=== PATIENT | female | born 1975 | race Caucasian/White ===

== ENCOUNTER 2025-02-17 09:58 | Day surgery (SDC) | payer BC, SELFPAY ==
--- NOTE | 2025-02-15 07:15 | P.HP_ITS ---
History of Present Illness *Admission Date: 02/17/25 *History of present illness: Mrs. Garcia is a 49-year-old female who is here for initial screening colonoscopy. The examination is deemed medically necessary for screening colonoscopy. The patient has been seen, interviewed and examined prior to the procedure by both myself and the anesthesia provider. [facility] Disclaimer: The information contained in this section may have been updated after the patient was seen, as this information can be updated by other users. Medical History (Updated 02/17/25 @ 10:14 by Asa Davis) No significant past medical history Surgical History (Updated 02/17/25 @ 10:14 by Asa Davis) History of laparoscopic appendectomy Hx of tonsillectomy Family History (Updated 02/17/25 @ 10:15 by Asa Davis) Father Heart disease Social History (Updated 02/17/25 @ 10:15 [facility] Smoking Status: Never smoker alcohol intake: never current occupational status: employed Travel in the last 8 weeks?: None Have you lived/traveled outside [place] in past 30 days?: No Contact w/someone who lives/traveled outside [place] past 30 days?: No Exposure to someone with infectious disease in past 14 days?: No Do you have a fever (greater than 100.4 F or 38 C)?: No Have you tested positive for COVID-19?: No Exposed to someone with COVID-19 in past 14 days?: No Do you have a sore throat?: No Do you have a cough?: No Do you have any weakness?: No Do you have any diarrhea?: No Are you experiencing any unusual bleeding?: No Do you have any muscle aches/pain?: No Do you have any abdominal pain?: No Are you experiencing loss of taste or smell?: No Review of Systems Review of Systems Review of systems (narrative): Negative *Cardiovascular Comments: Negative *Gastrointestinal Comments: Negative *Genitourinary Comments: Negative *Musculoskeletal Comments: Negative *Neurologic Comments: Negative Meds Home Medications and Allergies Home Medications ?Medication ?Instructions ?Recorded ?Confirmed ?Type sodium,potassium,mag sulfates 17.5 See Rx Instructions PO .COMPLEX 01/18/25 Rx gram-3.13 gram-1.6 gram oral soln #354 mL (Suprep Bowel Prep Kit) New Prescriptions to Start Prescriptions: Allergies Allergy/AdvReac Type Severity Reaction Status Date / Time No Known Allergies Allergy Verified 02/17/25 10:15 Exam *Routine HEENT Exam Head: Present normocephalic Eye: Present EOMI and PERRL ENT: Present mucous membranes moist *Routine Neck Exam Neck: Present supple *Routine Respiratory Exam Respiratory: Present CTA bilaterally *Routine Cardiovascular Exam Cardiovascular: Present RRR *Routine Abdominal Exam Abdominal: Present soft and normoactive bowel sounds; Absent tenderness *Routine Rectal Exam Rectal:: deferred *Routine Genitalia Exam Genitalia:: deferred *Routine Extremities Exam Extremities: Absent cyanosis, clubbing or edema *Routine Skin Exam Skin: Present warm; Absent rash *Routine Neurological Exam Neurological: Present alert and oriented X3 Assessment and Plan *Assessment and plan (1) Screening for colon cancer: Status: Acute Category: Medical Code(s): Z12.11 - Encounter for screening for malignant neoplasm of colon Plan A/P: 1. Screening for colon cancer is the preprocedural diagnosis. The patient will be anesthetized/sedated using MAC sedation. The patient has been seen and examined. Cardiac and lung assessment prior to the examination is stable. Proceed with planned screening colonoscopy.
--- NOTE | 2025-02-17 06:52 | HMH.PROCNOTE ---
[facility] Procedure Note Date: 02/17/25 Time: 10:59 Procedure Note:: Colonoscopy Procedure Report: Colonoscopy with cold biopsies Endoscopist: Sandro Emanuel II, MD Referring physician: Ana Garcia MD, [id number], [id number], [place] [address] Date of Procedure: February 17, 2025 Equipment: Olympus [id number] adult colonoscope Sedation: MAC sedation Indication: Mrs. Garcia is a 49-year-old female who is here for initial screening colonoscopy. The patient reports no abdominal pain, weight loss, change in her bowel habits or rectal bleeding. She reports no family history of colon cancer. The examination is deemed medically necessary for screening colonoscopy. Procedure: Prior to the procedure, a history and physical exam was performed, and patient's medications and allergies were reviewed. The risks, benefits and alternatives of the sedation and procedure were discussed with the patient. All questions were answered and informed consent was obtained. The patient was brought to the procedure room. Patient identification and proposed procedure were verified by the physician and the nurse. The patient was placed in a left lateral decubitus position and the scope was passed under direct vision. Throughout the procedure, the patient's blood pressure, pulse, and oxygen saturations were monitored continuously. The colonoscopy was accomplished without difficulty. The patient tolerated the procedure well. Findings: On digital rectal examination there was normal rectal tone. There were no external hemorrhoids. The colonoscope was introduced through the anal canal to the rectum and advanced to the cecum. The ileocecal valve and appendiceal orifice were identified. The scope was advanced 12 to 15 cm into the ileum. There were a few scattered aphthous erosions within the ileum (i.e. chronic ileitis) and cold biopsies were obtained from the ileum. The scope was then withdrawn into the colon. The cecum, ascending, transverse, descending and sigmoid colon were grossly normal. There were no mucosal abnormalities identified. Within the rectum there was a 2 to 3 mm polyp that was removed via cold biopsy. Upon retroflexion within the rectum there were small grade 1 internal hemorrhoids. The preparation was excellent throughout with Bristow Preparation Score of 9. The cecal time was 12 minutes. Impression: 1. 2 to 3 mm rectal polyp 2. Mild chronic ileitis Plan: I will follow-up the biopsies and polyp histology and discuss the findings with the patient and family.
[2025-02-17 10:08] VITALS: BMI 21.2
[2025-02-17 10:16] VITALS: BP 127/81; PULSE 87; RESP 16; TEMP 36.6; O2SAT 100
[2025-02-17] MEDS: LACTATED RINGERS 1000ML 1,000 ML 50 ML IV (10:22)
--- NOTE | 2025-02-17 10:35 | EXP.ANES.CKL ---
[facility] Disclaimer: The information contained in this section may have been updated after the patient was seen, as this information can be updated by other users. Medical History (Updated 02/17/25 @ 10:14 by Asa Davis) No significant past medical history Surgical History (Updated 02/17/25 @ 10:14 by Asa Davis) History of laparoscopic appendectomy Hx of tonsillectomy Family History (Updated 02/17/25 @ 10:15 by Asa Davis) Father Heart disease Social History (Updated 02/17/25 @ 10:15 by Asa Davis) Smoking Status: Never smoker alcohol intake: never substance use type: denies use current occupational status: employed Travel in the last 8 weeks?: None [facility] Anesthesia Checklist Patient Identification Patient Identification: Arm Band and Verbal (Name & ) Structural Data Admitted From: Home Planned Operative Procedure/s: Colonoscopy Consent for Planned Operative Procedure(s) Verified: Yes Verified Documents: Surgical Consent NPO Status Verified Time NPO: 00:00 Chart Verification Results Verified: HCG Additional verifications Anesthesia Reactions: No Airway Assessment Mallampati Score:: Class II C-Spine Mobility Assessed: Yes TMJ Mobility Assessed: Yes Dentition: Good Dentition Neurological Assessment Level of Consciousness: Awake, Alert and Appropriate Hx Seizures: No Numbness or tingling in extremities: No Anesthesia Plan Anesthesia Risk discussed: Yes Anesthesia Plan: Verified ASA Class: II Anesthesia Type: MAC
[2025-02-17 10:39] LABS: Urine Pregnancy, HCG Qual. Negative (Negative)
[2025-02-17 11:02] VITALS: BP 99/62; PULSE 85; RESP 20; TEMP 36.3; O2SAT 97
[2025-02-17 11:12] VITALS: BP 104/72; PULSE 78; O2SAT 98
[2025-02-17 11:22] VITALS: BP 124/73; PULSE 83; O2SAT 99
[2025-02-17 11:32] VITALS: BP 106/87; PULSE 79; O2SAT 100
[2025-02-21 18:08] LABS: Saccharomyces cerevisiae, IgA <20.0 Units (0.0-24.9); Saccharomyces cerevisiae, IgG <20.0 Units (0.0-24.9)
== END 2025-02-17 11:32 | disposition home or self-care (01) ==
PROVIDERS: PCP Internal Medicine; Visit Provider Internal Medicine Gastroenterology
PROC: 0DJD8ZZ Inspection of Lower Intestinal Tract, Via Natural or Artificial Opening Endoscopic (ICD-10-PCS; CPT 45378; principal; 2025-02-17 11:30)
DX: Z12.11 Encounter for screening for malignant neoplasm of colon (principal); K52.89 Other specified noninfective gastroenteritis and colitis; K62.1 Rectal polyp; K64.0 First degree hemorrhoids; Z90.49 Acquired absence of other specified parts of digestive tract
CPT/HCPCS: 45380; 36415; 81025; 86256; 86671; J2003; J2704; J7120